=== PATIENT | male | born 1970 | race Caucasian/White ===

== ENCOUNTER 2018-12-29 04:42 | Emergency (ER) | payer BC, OTHER ==
[~2018-12-29] VITALS: Ht 162.6 cm; Wt 71.0 kg
[2018-12-29 06:24] VITALS: BP 128/81
== END 2018-12-29 08:05 | disposition left against medical advice (07) ==
LOC: ER 04:42
DX: Z53.21 Procedure and treatment not carried out due to patient leaving prior to being seen by health care provider (principal)